=== PATIENT | female | born 1970 | race Caucasian/White ===

== ENCOUNTER 2018-05-02 09:33 | Day surgery (SDC) | payer BC ==
[~2018-05-02 09:33] MED LIST: Lactated Ringers 1,000 ML IV SCH; Sodium Chloride 0.9% 10 ML Syringe FLUSH PRN; Sodium Chloride 0.9% 2.5 ML Syringe FLUSH PRN
--- NOTE | 2018-05-02 10:02 | PCM.PREANE ---
Preanesthetic Assessment - Anesthesia/Transfusion/Family Hx Anesthesia History: Prior Anesthesia Without Reaction Other Type of Anesthesia Reaction Comment: family allergy hx of anectine Family History of Anesthesia Reaction: No Transfusion History: No Prior Transfusion(s) Intubation History: Unknown - Review of Systems General: No Symptoms Pulmonary: No Symptoms Cardiovascular: No Symptoms Gastrointestinal: Constipation, Diarrhea Neurological: No Symptoms Other: Reports: None - Physical Assessment Height: 1.68 m Weight: 82.554 kg ASA Class: 2 Mental Status: Alert & Oriented x3 Airway Class: Mallampati = 2 Dentition: Reports: Normal Dentition Thyro-Mental Finger Breadths: 2 Mouth Opening Finger Breadths: 2 ROM/Head Extension: Full Lungs: Clear to Auscultation, Normal Respiratory Effort Cardiovascular: Regular Rate, Regular Rhythm - Lab Values: Laboratory Last Values Urine HCG, Qual NEGATIVE (NEGATIVE) 05/02/18 08:46 - Allergies Allergies/Adverse Reactions: Allergies Allergy/AdvReac Type Severity Reaction Status Date / Time Sulfa (Sulfonamide Allergy Hives Verified 04/28/18 08:22 Antibiotics) Anectine Allergy "family Uncoded 04/28/18 08:21 allergy" - Blood Blood Available: No - Anesthesia Plan Pre-Op Medication Ordered: None - Acknowledgements Anesthesia Type Planned: MAC Pt an Appropriate Candidate for the Planned Anesthesia: Yes Alternatives and Risks of Anesthesia Discussed w Pt/Guardian: Yes Pt/Guardian Understands and Agrees with Anesthesia Plan: Yes PreAnesthesia Questionnaire HEENT History: Reports: Allergic Rhinitis, Other (See Below) Other HEENT History: wears glasses, latanoprost eye drop for increased pressure and to prevent glaucoma Genitourinary History: Reports: UTI, Recurrent Musculoskeletal History: Reports: None Neurological History: Reports: Migraines (not for a long time) Endocrine/Metabolic History: Reports: Hypothyroidism - Past Surgical History Head Surgeries/Procedures: Reports: None HEENT Surgical History: Reports: Tonsillectomy Female Surgical History: Reports: Tubal Ligation Musculoskeletal Surgical History: Reports: Other (See Below) Other Musculoskeletal Surgeries/Procedures:: lt achilles tendon repair - SUBSTANCE USE Smoking Status *Q: Current Every Day Smoker (1 ppd) Tobacco Use Within Last Twelve Months: Cigarettes Recreational Drug Use History: No - HOME MEDS Home Medications: Home Meds Latanoprost/Pf [Latanoprost 0.005% Eye Drop] 1 drop EYEBOTH DAILY 04/27/18 [ History] Levothyroxine Sodium [Levo-T] 100 mcg PO DAILY 04/27/18 [History] - CURRENT (IN HOUSE) MEDS Current Meds: Current Medications Lactated Ringer's (Ringers, Lactated) 1,000 mls @ 125 mls/hr IV ASDIRECTED NEIDA Sodium Chloride (Saline Flush) 10 ml FLUSH ASDIRECTED PRN PRN Reason: Keep Vein Open Sodium Chloride (Saline Flush) 2.5 ml FLUSH ASDIRECTED PRN PRN Reason: Keep Vein Open Sodium Chloride (Saline Flush) 10 ml FLUSH ASDIRECTED PRN PRN Reason: Keep Vein Open Sodium Chloride (Saline Flush) 2.5 ml FLUSH ASDIRECTED PRN PRN Reason: Keep Vein Open
[2018-05-02] MEDS ORDERED: Lidocaine 2% 5 ML SDV ONE (10:41)
[2018-05-02] MEDS ORDERED: Propofol 200 MG/20 ML SDV ONE ×2 (10:41→11:28)
[2018-05-02] MEDS ORDERED: fentaNYL 100 MCG/2 ML SDV ONE (10:41)
[2018-05-02] MEDS ORDERED: Midazolam 1 MG/ML 2 ML SDV ONE (10:41)
[2018-05-02] MEDS ORDERED: cefOXitin 1 GM Vial ONE (11:26)
[2018-05-02] MEDS ORDERED: Water For Injection, Sterile 20 ML ONE (11:26)
--- NOTE | 2018-05-02 11:49 | PCM.OPNOTE ---
- General Post-Op/Procedure Note Date of Surgery/Procedure: 05/02/18 Operative Procedure(s): Diagnostic colonoscopy Findings: 1 cecal polyp, 1 ascending flat sessile colon polyp incompletely removed, 1 descedning colon polyp removed with hot snare, sigmoid colon polyps x 4, # 2 and #4 were removed with snare polyp. #2 was largest. Rectal polyp x 2 Pre Op Diagnosis: Change in bowel habits Post-Op Diagnosis: Cecal, ascending colon, descending colon, sigmoid colon x 4 and rectal x 2 colon polyps Anesthesia Technique: MAC Primary Surgeon: Pricila Gleason Condition: Good
--- NOTE | 2018-05-02 12:23 | PCM48HPAN ---
Post Anesthesia Note - EVALUATION WITHIN 48HRS OF ANESTHETIC Vital Signs in Normal Range: Yes Patient Participated in Evaluation: Yes Respiratory Function Stable: Yes Airway Patent: Yes Cardiovascular Function Stable: Yes Hydration Status Stable: Yes Pain Control Satisfactory: Yes Nausea and Vomiting Control Satisfactory: Yes Mental Status Recovered: Yes Resp Rate: 12 - COMMENTS/OBSERVATIONS Free Text/Narrative:: no anesthesia problems
--- NOTE | 2018-05-03 00:18 | OR ---
SURGEON: ELEAZAR HYDE MD DATE OF PROCEDURE: 05/02/2018 PREOPERATIVE DIAGNOSIS: Change in bowel habits. POSTOPERATIVE DIAGNOSES: 1. Cecal polyp. 2. Ascending colon polyp. 3. Descending colon polyp. 4. Sigmoid colon polyp x4. 5. Rectal polyps x2. PROCEDURE PERFORMED: Diagnostic colonoscopy. ANESTHESIA: MAC. EXTENT OF EXAM: To the cecum. PREPARATION: Good. LIMITATIONS: None. INDICATION FOR EXAMINATION: The patient is a 47-year-old female, who presents with changes in her bowel habits. The decision was made to proceed with a diagnostic colonoscopy. We discussed the procedure, expected perioperative course, and risks including bleeding, infection, or damage to surrounding structures including perforation. The patient verbalized understanding and wishes to proceed. PROCEDURE IN DETAIL: The patient was brought in to the endoscopy suite and placed in the left lateral decubitus position. A time-out was completed verifying the patient's name, age, date of , allergies, and procedure to be performed. Monitored anesthesia care was induced, and continuous oxygen was provided via nasal cannula throughout the procedure. After adequate sedation was achieved, a digital rectal exam was performed. This exam was within normal limits. A well lubricated colonoscope was inserted in the rectum and advanced under direct visualization to the level of the cecum. The cecum was identified by both visual and anatomic landmarks. A photograph was taken of the cecal cap, however, I was unable to retroflex the scope within the cecum due to looping of the scope more proximally. The scope was then fully withdrawn while examining the color, texture, anatomy, and integrity of the mucosa from the cecum to the anal canal. The patient was found to have a 3 mm to 4 mm polyp within the cecal cap. This was removed using a cold biopsy forceps. In the proximal ascending colon, the patient had a confluent polyp that was very sessile. I removed as much of this as I could using a cold biopsy forceps. Given its sessile nature, it was unclear whether I had removed all of the mass or not. The area was inked to allow further visualization in the future. The biopsies I took were sent to Pathology labeled as ascending colon polyp. Within the descending colon, the patient had an approximately 1 cm pedunculated polyp. This was removed using a hot snare. The area was marked with ink, and the polyp was sent to Pathology labeled as descending colon polyp. The patient had four sigmoid colon polyps. Sigmoid colon polyp #1 and #3 were small and removed using a cold biopsy forceps. Sigmoid colon polyp #2 and #4 were large and required a hot snare to remove them. The largest of all these polyps was sigmoid colon polyp #2. Sigmoid colon polyp #2 and #4 areas were marked with ink. The scope was brought into the rectum. There were two small polyps noted within the rectum and these were removed using cold biopsy forceps. I then reinserted the scope to the level of the transverse colon. The biopsy sites all appeared to be hemostatic. The scope was then brought back into the rectum and retroflexed to allow visualization of the anal canal opening. This appeared normal and a photograph was taken. The scope was then straightened out and fully withdrawn. The cecum to anus time was greater than 20 minutes. The patient tolerated the procedure well and was taken to PACU in stable condition. ENDOSCOPIC DIAGNOSIS: 1. Cecal polyp. 2. Ascending colon polyp. 3. Descending colon polyp. 4. Sigmoid colon polyp x4. 5. Rectal polyps x2. RECOMMENDATIONS: I visited with the patient regarding the procedure in the Postoperative Care Area. We will follow up on the biopsy results of these polyps and discuss any further management that needs to be done with the patient in clinic in 2 weeks. MEGHAN SAMUELS /[id number]
== END 2018-05-02 12:44 | disposition home or self-care (01) ==
LOC: MW.SDS 09:33
PROVIDERS: ATTEND Surgery
DX: R19.4 Change in bowel habit (principal); D12.2 Benign neoplasm of ascending colon; D12.0 Benign neoplasm of cecum; D12.4 Benign neoplasm of descending colon; D12.5 Benign neoplasm of sigmoid colon; D12.8 Benign neoplasm of rectum; F17.210 Nicotine dependence, cigarettes, uncomplicated; E03.9 Hypothyroidism, unspecified; Z79.899 Other long term (current) drug therapy; Z88.2 Allergy status to sulfonamides; Z88.8 Allergy status to other drugs, medicaments and biological substances; Z68.29 Body mass index [BMI] 29.0-29.9, adult
CPT/HCPCS: 45380; 45381; 45385; 81025; J0694; J2250; J2704; J3010; J7120

== ENCOUNTER 2018-05-23 06:59 | Day surgery (SDC) | payer BC ==
[2018-05-22 16:34] LABS: CHLORIDE,CL 100 mmol/L (98-107); SODIUM,NA 134 mmol/L (136-145)
[~2018-05-23 06:59] MED LIST changes: -Sodium Chloride 0.9% 10 ML Syringe FLUSH PRN; -Sodium Chloride 0.9% 2.5 ML Syringe FLUSH PRN
[2018-05-23] MEDS ORDERED: Sodium Chloride 0.9% 2.5 ML Syringe FLUSH PRN (07:34)
[2018-05-23] MEDS ORDERED: Sodium Chloride 0.9% 10 ML Syringe FLUSH PRN (07:34)
[2018-05-23] MEDS ORDERED: Rocuronium 10 MG/ML 10 ML Syringe ONE (07:37)
[2018-05-23] MEDS ORDERED: Methylene Blue 50 MG/10 ML Ampule ONE ×2 (07:37→08:51)
[2018-05-23] MEDS ORDERED: Lidocaine 2% 5 ML SDV ONE (07:37)
[2018-05-23] MEDS ORDERED: Propofol 200 MG/20 ML SDV ONE (07:37)
[2018-05-23] MEDS ORDERED: Ondansetron 4 MG/2 ML SDV ONE (07:37)
[2018-05-23] MEDS ORDERED: Midazolam 1 MG/ML 2 ML SDV ONE ×2 (07:37→09:02)
[2018-05-23] MEDS ORDERED: Fluorescein 5 ML Vial ONE (07:37)
[2018-05-23] MEDS ORDERED: fentaNYL 250 MCG/5 ML SDV ONE (07:38)
[2018-05-23] MEDS ORDERED: Lactated Ringers 1,000 ML IV SCH (07:45)
--- NOTE | 2018-05-23 08:08 | PCM.PREANE ---
Preanesthetic Assessment - Procedure Proposed Procedure: [facility] - Anesthesia/Transfusion/Family Hx Anesthesia History: Prior Anesthesia Without Reaction Other Type of Anesthesia Reaction Comment: family allergy hx of anectine Family History of Anesthesia Reaction: Yes Transfusion History: No Prior Transfusion(s) Intubation History: Unknown - Review of Systems General: No Symptoms Pulmonary: No Symptoms Cardiovascular: No Symptoms Gastrointestinal: No Symptoms Neurological: No Symptoms Other: Reports: None - Physical Assessment NPO Status Date: 05/22/18 NPO Status Time: 23:00 Height: 5 ft 6.5 in Weight: 83.007 kg ASA Class: 2 Mental Status: Alert & Oriented x3 Airway Class: Mallampati = 2 Dentition: Reports: Normal Dentition Thyro-Mental Finger Breadths: 3 Mouth Opening Finger Breadths: 3 ROM/Head Extension: Full Lungs: Clear to Auscultation, Normal Respiratory Effort Cardiovascular: Regular Rate, Regular Rhythm - Lab Values: Laboratory Last Values WBC 9.04 K/uL (4.0-11.0) 05/22/18 16:05 RBC 4.80 M/uL (4.30-5.90) 05/22/18 16:05 Hgb 14.6 g/dL (12.0-16.0) 05/22/18 16:05 Hct 43.2 % (36.0-46.0) 05/22/18 16:05 MCV 90.0 fL (80.0-98.0) 05/22/18 16:05 MCH 30.4 pg (27.0-32.0) 05/22/18 16:05 MCHC 33.8 g/dL (31.0-37.0) 05/22/18 16:05 RDW Std Deviation 45.0 fl (28.0-62.0) 05/22/18 16:05 RDW Coeff of Leon 14 % (11.0-15.0) 05/22/18 16:05 Plt Count 279 K/uL (150-400) 05/22/18 16:05 MPV 9.80 fL (7.40-12.00) 05/22/18 16:05 Nucleated RBC % 0.0 /100WBC 05/22/18 16:05 Nucleated RBCs # 0 K/uL 05/22/18 16:05 Sodium 134 mmol/L (136-145) L 05/22/18 16:05 Potassium 4.4 mmol/L (3.5-5.1) 05/22/18 16:05 Chloride 100 mmol/L (98-107) 05/22/18 16:05 Carbon Dioxide 23.1 mmol/L (21.0-32.0) 05/22/18 16:05 BUN 5 mg/dL (7.0-18.0) L 05/22/18 16:05 Creatinine 0.8 mg/dL (0.6-1.0) 05/22/18 16:05 Est Cr Clr Drug Dosing 83.85 mL/min 05/22/18 16:05 Estimated GFR (MDRD) > 60.0 ml/min 05/22/18 16:05 Glucose 108 mg/dL (74-106) H 05/22/18 16:05 Calcium 9.4 mg/dL (8.5-10.1) 05/22/18 16:05 HCG, Qual NEGATIVE (NEG) 05/22/18 16:05 Blood Type O POSITIVE 05/22/18 16:05 Antibody Screen NEGATIVE 05/22/18 16:05 - Allergies Allergies/Adverse Reactions: Allergies Allergy/AdvReac Type Severity Reaction Status Date / Time Sulfa (Sulfonamide Allergy Hives Verified 05/16/18 14:40 Antibiotics) Anectine Allergy "family Uncoded 05/16/18 14:40 allergy" - Acknowledgements Anesthesia Type Planned: General Anesthesia (TIVA, NO Volatile anesthestics or succinylcholine) Pt an Appropriate Candidate for the Planned Anesthesia: Yes Alternatives and Risks of Anesthesia Discussed w Pt/Guardian: Yes Pt/Guardian Understands and Agrees with Anesthesia Plan: Yes Additional Comments: I spoke with the patient at length regarding her family history of "malignant hyperthermia". The patient states her cousin, grandfather, great-grandmother, and 1 additional blood line relative have all while under anesthesia. The patient herself has not been tested for MH, but will be treated as if she is a known carrier. MH precautions instituted, anesthesia machine flushed per manufacture recommendations, soda changed, inline charcoal filters placed, and vaporizers disconnected. I explained to the patient that we will avoid volatile anesthetics and known triggers including but not limited to: sevoflurane, desflurane, nitrous oxide (questionable trigger in the literature) , succinylcholine. PreAnesthesia Questionnaire HEENT History: Reports: Allergic Rhinitis, Other (See Below) Other HEENT History: wears glasses, latanoprost eye drop for increased pressure and to prevent glaucoma Cardiovascular History: Reports: None Respiratory History: Reports: None Gastrointestinal History: Reports: Colon Polyp Genitourinary History: Reports: UTI, Recurrent SURGICAL ASSISTANT History: Reports: Ectopic , Musculoskeletal History: Reports: None Neurological History: Reports: Migraines Psychiatric History: Reports: None Endocrine/Metabolic History: Reports: Hypothyroidism Hematologic History: Reports: None Immunologic History: Reports: None Oncologic (Cancer) History: Reports: None Dermatologic History: Reports: None - Infectious Disease History Infectious Disease History: Reports: None - Past Surgical History Head Surgeries/Procedures: Reports: None HEENT Surgical History: Reports: Tonsillectomy GI Surgical History: Reports: Colonoscopy Female Surgical History: Reports: Cervical Cryotherapy, LEEP, Tubal Ligation Musculoskeletal Surgical History: Reports: Other (See Below) Other Musculoskeletal Surgeries/Procedures:: lt achilles tendon repair x3 left foot - SUBSTANCE USE Smoking Status *Q: Current Every Day Smoker Tobacco Use Within Last Twelve Months: Cigarettes Recreational Drug Use History: No - HOME MEDS Home Medications: Home Meds Latanoprost/Pf [Latanoprost 0.005% Eye Drop] 1 drop EYEBOTH BEDTIME 04/27/18 [ History] Levothyroxine Sodium [Levo-T] 100 mcg PO DAILY 04/27/18 [History] - CURRENT (IN HOUSE) MEDS Current Meds: Current Medications Lactated Ringer's (Ringers, Lactated) 1,000 mls @ 125 mls/hr IV ASDIRECTED NEIDA Lactated Ringer's (Ringers, Lactated) 1,000 mls @ 125 mls/hr IV ASDIRECTED NEIDA Sodium Chloride (Saline Flush) 10 ml FLUSH ASDIRECTED PRN PRN Reason: Keep Vein Open Sodium Chloride (Saline Flush) 2.5 ml FLUSH ASDIRECTED PRN PRN Reason: Keep Vein Open Discontinued Medications Fentanyl (Sublimaze) Confirm Administered Dose 250 mcg .ROUTE .STK-MED ONE Stop: 05/23/18 07:39 Fluorescein Sodium (Ak-Fluor) Confirm Administered Dose 5 ml .ROUTE .STK-MED ONE Stop: 05/23/18 07:38 Lidocaine (Xylocaine-Mpf 2%) Confirm Administered Dose 5 ml .ROUTE .Eventap-MED ONE Stop: 05/23/18 07:38 Methylene Blue (Provayblue) Confirm Administered Dose 50 mg .ROUTE .Eventap-MED ONE Stop: 05/23/18 07:38 Midazolam HCl (Versed 1 Mg/Ml) Confirm Administered Dose 2 mg .ROUTE .YesGraph ONE Stop: 05/23/18 07:38 Ondansetron HCl (Zofran) Confirm Administered Dose 4 mg .ROUTE .Eventap-MED ONE Stop: 05/23/18 07:38 Propofol (Diprivan 20 Ml) Confirm Administered Dose 200 mg .ROUTE .SunnovationsMED ONE Stop: 05/23/18 07:[address] (Zemuron) Confirm Administered Dose 100 mg .ROUTE .SunnovationsMED ONE Stop: 05/23/18 07:38
[2018-05-23] MEDS ORDERED: HYDROmorphone 2 MG/ML SDV ONE (09:02)
[2018-05-23] MEDS ORDERED: fentaNYL 100 MCG/2 ML SDV IVPUSH PRN (10:08)
[2018-05-23] MEDS ORDERED: ePHEDrine 50 MG/ML SDV ONE (10:09)
[2018-05-23] MEDS ORDERED: Promethazine 25 MG/ML SDV IM PRN (11:02)
[2018-05-23] MEDS ORDERED: Ondansetron 4 MG/2 ML SDV IVPUSH PRN (11:02)
[2018-05-23] MEDS ORDERED: Acetaminophen/oxyCODONE 325-5 MG Tab PO PRN ×2 (11:02)
[2018-05-23] MEDS ORDERED: Ketorolac 30 MG/ML SDV IVPUSH ONE (11:02)
--- NOTE | 2018-05-23 11:13 | PCM.OPNOTE ---
- General Post-Op/Procedure Note Date of Surgery/Procedure: 05/23/18 Operative Procedure(s): Total vaginal hysterectomy with bilateral salpingectomy and cystoscopy and left ovarian biopsy Findings: Large black lesion on left ovary along with smaller implants on peritoneum. Tubes indicative of previous tubal ligation. Bladder intact. Pre Op Diagnosis: 1. Cervical lesion. 2. Menorrhagia Post-Op Diagnosis: Same plus lesion on left ovary, possible endometriosis vs hemorrhagic cyst Anesthesia Technique: Other (see below) Other Anesthesia Type: TIVA Primary Surgeon: Yessy Beavers Secondary Surgeon: Angela Hererra (Second Assist: Justen Cheatham, MS4) Anesthesia Provider: Ned Finn Plasma Table Operator: Norma Jason Pathology: Biopsy specimen of left ovary, uterus, and bilateral fallopian tubes Fluid Replacement, Intraop: 1,700 EBL in mLs: 150 Complications: None known Condition: Good
--- NOTE | 2018-05-23 11:44 | PCM.POSTAN ---
POST ANESTHESIA ASSESSMENT - MENTAL STATUS Mental Status: Alert, Oriented - RESPIRATORY Respiratory Status: Respiratory Rate WNL, Airway Patent, O2 Saturation Stable - CARDIOVASCULAR CV Status: Pulse Rate WNL, Blood Pressure Stable - GASTROINTESTINAL GI Status: No Symptoms - POST OP HYDRATION Hydration Status: Adequate & Stable
[2018-05-23] MEDS: Ketorolac 30 MG/ML SDV IVPUSH SCH ×2 (12:23→17:19)
[2018-05-23] MEDS ORDERED: Bupivacaine 0.5% 10 ML SDV ONE (13:25)
--- NOTE | 2018-05-23 13:39 | OR ---
SURGEON: Yessy Beavers M.D. DATE OF PROCEDURE: 05/23/2018 PREOPERATIVE DIAGNOSES: 1. Menorrhagia. 2. Cervical lesion. POSTOPERATIVE DIAGNOSES: 1. Menorrhagia. 2. Cervical lesion. PROCEDURES: Total vaginal hysterectomy with bilateral salpingectomy, biopsy of left ovary, and cystoscopy. BOND RUNNER: Angela Herrera MD. SECOND BOND RUNNER: Yina Cheatham MS4. ANESTHESIA: TIVA. ESTIMATED BLOOD LOSS: 150 mL. FLUIDS: 1700 mL crystalloid. FINDINGS: Uterus was 8 week size, mobile. The right tube and ovary appeared normal with note of prior tubal ligation. The left ovary had a black lesion on it, possible old hemorrhage from hemorrhagic corpus luteum, possible endometriosis, this area was biopsied. Remainder of the pelvis was normal. Upon cystoscopy, there was copious flow of bright green urine from bilateral ureteral orifices and there was no evidence of any trauma to the bladder mucosa. COMPLICATIONS: None known. DISPOSITION: Stable to recovery. BRIEF HISTORY: This is a 47-year-old female, she presents with pelvic pain on the left, bowel movements alternating diarrhea and constipation, mucousy stools, abnormal uterine bleeding with excessive quantity and cramping. However, it is predictable and lasts 5 to 8 days. She had a LEEP in 2013, has had regular Pap since that time which have been normal. However, ultrasound shows a 3 cm mass in the cervix which is most suggestive of a fibroid. She has had an ultrasound, which did not suggest a polyp or submucosal fibroid. She has had a benign endometrial biopsy. After discussion of options for management of her irregular periods as well as the cervical lesion, she desires to proceed with hysterectomy. Initially our plan was to proceed with a laparoscopically assisted vaginal hysterectomy with removal of the tubes in an effort to reduce risk of ovarian cancer. However, after discussion of anesthesia, she has a family history of anesthesia and they felt that the safest anesthesia was TIVA. Establishing a pneumoperitoneum would make this more difficult anesthetic and therefore I did discuss with the patient ahead of time and we will proceed with a total vaginal hysterectomy, attempted bilateral salpingectomy, and cystoscopy and surgery as indicated. Risks have been discussed including bleeding; infection; injury to bowel, bladder, blood vessels, or other organs; risk of thromboembolic event; risk of anesthesia as well as risk of change in sexual function; and persistent symptoms regarding pain. Understanding these risks, she does desire to proceed. DESCRIPTION OF PROCEDURE: With the patient in dorsal lithotomy position, under adequate TIVA, the abdomen was prepped with chlorhexidine. The perineum and vagina were prepped with Betadine and draped in usual fashion for vaginal surgery. Hernandez catheter was placed. SCDs were in place. She had received 2 g of Ancef IV and an appropriate time-out was held. Bimanual examination revealed a mobile, 8 week sized uterus. Weighted speculum was placed posteriorly and a right angle was placed anteriorly. The cervix was grasped with a Veronica tenaculum and circumscribed using electrocautery. The anterior cul-de-sac was entered sharply, and the right angle retractor was placed. The posterior cul-de-sac was entered sharply. The Erick Auvard speculum was placed. The uterosacral ligaments were cross clamped with a Narcisa clamp, cut, and ligated with a Narcisa ligature of 2-0 Polysorb. Two additional pedicles were taken across the cardinal ligament complex on the right and the left and an additional pedicle across the utero-ovarian ligament, which was clamped with a Narcisa clamp, cut, and ligated using a free tie, followed by [id number] suture of 2-0 Polysorb. These were retained, both were hemostatic. The tubes were then identified, grasped with a Yudi, and the remaining mesosalpinx was clamped, cut, and ligated on the right and the left. These were carefully inspected for hemostasis. Both were hemostatic and were released. The utero-ovarian ligaments were carefully inspected for hemostasis, they were hemostatic and were released. The remaining pedicles were inspected for hemostasis, they were hemostatic. The retained uterosacral ligament sutures were ligated to the vaginal apices bilaterally and the vaginal cuff was closed with a running lock suture of 0 Polysorb. The Hernandez catheter was removed. Cystoscopy was performed after IV fluorescein had been given and there was copious flow of bright green urine from bilateral ureteral orifices. There was also no evidence of any trauma to the bladder mucosa. The cystoscope was then removed, a Hernandez catheter was placed. A speculum was placed in the vagina to inspect the cuff which was hemostatic. All the instruments removed from the vagina. Final sponge, needle, and instrument counts were reported as correct. There were no known complications. The patient was transferred to recovery in good condition. MARY SAMUELS /[id number]
--- NOTE | 2018-05-23 13:45 | OR ---
SURGEON: Yessy Beavers M.D. DATE OF PROCEDURE: ADDENDUM: PROCEDURE: Following ligation of the utero-ovarian ligament, the tubes and ovaries were inspected. The left ovary had a large dark implant with some surrounding dark implants on the peritoneum. The lesion on the ovary was biopsied with the biopsy forceps and also cauterized and this was sent to pathology as a separate specimen. Pathology specimens for the procedure are uterus, bilateral fallopian tubes, left ovarian biopsy. MARY / ARVIND /[id number]
--- NOTE | 2018-05-23 16:22 | PCM48HPAN ---
Post Anesthesia Note - EVALUATION WITHIN 48HRS OF ANESTHETIC Vital Signs in Normal Range: Yes Patient Participated in Evaluation: Yes Respiratory Function Stable: Yes Airway Patent: Yes Cardiovascular Function Stable: Yes Hydration Status Stable: Yes Pain Control Satisfactory: Yes (she feels pelvic pressure, not pain) Nausea and Vomiting Control Satisfactory: Yes Mental Status Recovered: Yes Resp Rate: 16
[2018-05-23] MEDS ORDERED: Latanoprost 0.005% Ophth Soln 2.5 ML Bottle EYEBOTH SCH (21:00)
[2018-05-24] MEDS: Ketorolac 30 MG/ML SDV IVPUSH SCH ×2 (04:27)
[2018-05-24 05:54] LABS: CHLORIDE,CL 102 mmol/L (98-107); SODIUM,NA 134 mmol/L (136-145)
--- NOTE | 2018-05-24 08:01 | PCM.PN ---
<Justen Cheatham - Last Filed: 05/24/18 08:21> - General Info Date of Service: 05/24/18 Admission Dx/Problem (Free Text): POD1 after total vaginal hysterectomy and bilateral salpingectomy with cystoscopy and left ovarian biopsy Subjective Update: Patient is doing well and resting comfortably. She denies any pain, stating she only feels some slight discomfort in her pelvic region. She is on IV Toradal. Normal appetite. Denies BM. Spontaneous urination throughout the night after removal of Hernandez catheter. Functional Status: Reports: Pain Controlled, Tolerating Diet, Ambulating, Urinating - Review of Systems General: Reports: No Symptoms Pulmonary: Denies: Shortness of Breath Cardiovascular: Denies: Chest Pain Gastrointestinal: Reports: No Symptoms Genitourinary: Reports: No Symptoms - Patient Data Vitals - Most Recent: Last Vital Signs Temp 98.0 F 05/24/18 04:00 Pulse 83 05/24/18 04:00 Resp 19 05/24/18 04:00 BP 144/71 H 05/24/18 04:00 Pulse Ox 94 L 05/24/18 04:00 Weight - Most Recent: 83.007 kg I&O - Last 24 Hours: Intake & Output 05/23/18 05/24/18 05/24/18 22:59 06:59 14:59 Intake Total 370 1100 Output Total 425 2300 Balance -55 -1200 Lab Results Last 24 Hours: Laboratory Results - last 24 hr 05/24/18 05/24/18 Range/Units 04:55 04:55 WBC 12.21 H (4.0-11.0) K/uL RBC 4.13 L (4.30-5.90) M/uL Hgb 12.3 (12.0-16.0) g/dL Hct 37.4 (36.0-46.0) % MCV 90.6 (80.0-98.0) fL MCH 29.8 (27.0-32.0) pg MCHC 32.9 (31.0-37.0) g/dL RDW Std Deviation 45.2 (28.0-62.0) fl RDW Coeff of Leon 14 (11.0-15.0) % Plt Count 238 (150-400) K/uL MPV 10.40 (7.40-12.00) fL Neut % (Auto) 81.1 H (48.0-80.0) % Lymph % (Auto) 12.5 L (16.0-40.0) % [place] % (Auto) 5.4 (0.0-15.0) % Eos % (Auto) 0.8 (0.0-7.0) % Baso % (Auto) 0.2 (0.0-1.5) % Neut # (Auto) 9.9 H (1.4-5.7) K/uL Lymph # (Auto) 1.5 (0.6-2.4) K/uL [place] # (Auto) 0.7 (0.0-0.8) K/uL Eos # (Auto) 0.1 (0.0-0.7) K/uL Baso # (Auto) 0.0 (0.0-0.1) K/uL Nucleated RBC % 0.0 /100WBC Nucleated RBCs # 0 K/uL Sodium 134 L (136-145) mmol/L Potassium 3.8 (3.5-5.1) mmol/L Chloride 102 (98-107) mmol/L Carbon Dioxide 25.2 (21.0-32.0) mmol/L BUN 3 L (7.0-18.0) mg/dL Creatinine 0.7 (0.6-1.0) mg/dL Est Cr Clr Drug Dosing 95.83 mL/min Estimated GFR (MDRD) > 60.0 ml/min Glucose 91 (74-106) mg/dL Calcium 8.0 L (8.5-10.1) mg/dL Med Orders - Current: Current Medications Fentanyl (Sublimaze) 50 mcg IVPUSH SEECOMMENT PRN PRN Reason: Pain (moderate 4-6) Lactated Ringer's (Ringers, Lactated) 1,000 mls @ 125 mls/hr IV ASDIRECTED [facility] Last Admin: 05/23/18 07:50 Dose: 125 mls/hr Lactated Ringer's (Ringers, Lactated) 1,000 mls @ 125 mls/hr IV ASDIRECTED [facility] Last Admin: 05/23/18 12:24 Dose: 125 mls/hr Ketorolac Tromethamine (Toradol) 30 mg IVPUSH Q6H [facility] Stop: 05/28/18 11:03 Last Admin: 05/24/18 04:27 Dose: 30 mg Latanoprost (Xalatan 0.005% Ophth Soln) 0 ml EYEBOTH BEDTIME [facility] Last Admin: 05/23/18 22:00 Dose: 1 drop Levothyroxine Sodium (Synthroid) 100 mcg PO DAILY [facility] Ondansetron HCl (Zofran) 4 mg IVPUSH Q6H PRN PRN Reason: Nausea/Vomiting Oxycodone/Acetaminophen (Percocet 325-5 Mg) 1 tab PO Q4H PRN PRN Reason: Pain (moderate 4-6) Oxycodone/Acetaminophen (Percocet 325-5 Mg) 2 tab PO Q4H PRN PRN Reason: Pain (moderate 4-6) Promethazine HCl (Phenergan) 25 mg IM Q6H PRN PRN Reason: Nausea/Vomiting Sodium Chloride (Saline Flush) 10 ml FLUSH ASDIRECTED PRN PRN Reason: Keep Vein Open Sodium Chloride (Saline Flush) 2.5 ml FLUSH ASDIRECTED PRN PRN Reason: Keep Vein Open Discontinued Medications Bupivacaine HCl (Sensorcaine-Mpf 0.5%) Confirm Administered Dose 10 ml .ROUTE .STK-MED ONE Stop: 05/23/18 13:26 Ephedrine Sulfate (Ephedrine Sulfate) Confirm Administered Dose 50 mg .ROUTE .STK-MED ONE Stop: 05/23/18 10:10 Fentanyl (Sublimaze) Confirm Administered Dose 250 mcg .ROUTE .STK-MED ONE Stop: 05/23/18 07:39 Fluorescein Sodium (Ak-Fluor) Confirm Administered Dose 5 ml .ROUTE .STK-MED ONE Stop: 05/23/18 07:38 Hydromorphone HCl (Dilaudid) Confirm Administered Dose 2 mg .ROUTE .STK-MED ONE Stop: 05/23/18 09:03 Propofol (Diprivan 50 Ml) Confirm Administered Dose 100 mls @ as directed .ROUTE .STK-MED ONE Stop: 05/23/18 09:05 Acetaminophen (Ofirmev) Confirm Administered Dose 100 mls @ as directed IV .STK- MED ONE Stop: 05/23/18 09:05 Ketorolac Tromethamine (Toradol) 30 mg IVPUSH ONETIME ONE Stop: 05/23/18 11:03 Last Admin: 05/23/18 11:26 Dose: 30 mg Lidocaine (Xylocaine-Mpf 2%) Confirm Administered Dose 5 ml .ROUTE .STK-MED ONE Stop: 05/23/18 07:38 Methylene Blue (Provayblue) Confirm Administered Dose 50 mg .ROUTE .STK-MED ONE Stop: 05/23/18 07:38 Methylene Blue (Provayblue) Confirm Administered Dose 50 mg .ROUTE .STK-MED ONE Stop: 05/23/18 08:52 Midazolam HCl (Versed 1 Mg/Ml) Confirm Administered Dose 2 mg .ROUTE .STK-MED ONE Stop: 05/23/18 07:38 Midazolam HCl (Versed 1 Mg/Ml) Confirm Administered Dose 2 mg .ROUTE .STK-MED ONE Stop: 05/23/18 09:03 Ondansetron HCl (Zofran) Confirm Administered Dose 4 mg .ROUTE .STK-MED ONE Stop: 05/23/18 07:38 Propofol (Diprivan 20 Ml) Confirm Administered Dose 200 mg .ROUTE .STK-MED ONE Stop: 05/23/18 07:38 Rocuronium [place] (Zemuron) Confirm Administered Dose 100 mg .ROUTE .ST-MED ONE Stop: 05/23/18 07:38 - Problem List Review Problem List Initiated/Reviewed/Updated: Yes - Assessment Assessment:: 47 year old female POD1 following total vaginal hysterectomy, bilateral salpingectomy, cystoscopy, and left ovarian biopsy. Patient doing well. - Plan Plan:: 1. Routine post-operative care 2. Anticipate discharge home today <Yessy Beavers - Last Filed: 05/24/18 08:47> - Patient Data Vitals - Most Recent: Last Vital Signs Temp 36.7 C 05/24/18 04:00 Pulse 83 05/24/18 04:00 Resp 19 05/24/18 04:00 BP 144/71 H 05/24/18 04:00 Pulse Ox 94 L 05/24/18 04:00 I&O - Last 24 Hours: Intake & Output 05/23/18 05/24/18 05/24/18 22:59 06:59 14:59 Intake Total 370 1100 Output Total 425 2300 Balance -55 -1200 Lab Results Last 24 Hours: Laboratory Results - last 24 hr 05/24/18 05/24/18 Range/Units 04:55 04:55 WBC 12.21 H (4.0-11.0) K/uL RBC 4.13 L (4.30-5.90) M/uL Hgb 12.3 (12.0-16.0) g/dL Hct 37.4 (36.0-46.0) % MCV 90.6 (80.0-98.0) fL MCH 29.8 (27.0-32.0) pg MCHC 32.9 (31.0-37.0) g/dL RDW Std Deviation 45.2 (28.0-62.0) fl RDW Coeff of Leon 14 (11.0-15.0) % Plt Count 238 (150-400) K/uL MPV 10.40 (7.40-12.00) fL Neut % (Auto) 81.1 H (48.0-80.0) % Lymph % (Auto) 12.5 L (16.0-40.0) % [place] % (Auto) 5.4 (0.0-15.0) % Eos % (Auto) 0.8 (0.0-7.0) % Baso % (Auto) 0.2 (0.0-1.5) % Neut # (Auto) 9.9 H (1.4-5.7) K/uL Lymph # (Auto) 1.5 (0.6-2.4) K/uL [place] # (Auto) 0.7 (0.0-0.8) K/uL Eos # (Auto) 0.1 (0.0-0.7) K/uL Baso # (Auto) 0.0 (0.0-0.1) K/uL Nucleated RBC % 0.0 /100WBC Nucleated RBCs # 0 K/uL Sodium 134 L (136-145) mmol/L Potassium 3.8 (3.5-5.1) mmol/L Chloride 102 (98-107) mmol/L Carbon Dioxide 25.2 (21.0-32.0) mmol/L BUN 3 L (7.0-18.0) mg/dL Creatinine 0.7 (0.6-1.0) mg/dL Est Cr Clr Drug Dosing 95.83 mL/min Estimated GFR (MDRD) > 60.0 ml/min Glucose 91 (74-106) mg/dL Calcium 8.0 L (8.5-10.1) mg/dL Med Orders - Current: Current Medications Fentanyl (Sublimaze) 50 mcg IVPUSH SEECOMMENT PRN PRN Reason: Pain (moderate 4-6) Lactated Ringer's (Ringers, Lactated) 1,000 mls @ 125 mls/hr IV ASDIRECTED [facility] Last Admin: 05/23/18 07:50 Dose: 125 mls/hr Lactated Ringer's (Ringers, Lactated) 1,000 mls @ 125 mls/hr IV ASDIRECTED [facility] Last Admin: 05/23/18 12:24 Dose: 125 mls/hr Ketorolac Tromethamine (Toradol) 30 mg IVPUSH Q6H [facility] Stop: 05/28/18 11:03 Last Admin: 05/24/18 04:27 Dose: 30 mg Latanoprost (Xalatan 0.005% Ophth Soln) 0 ml EYEBOTH BEDTIME [facility] Last Admin: 05/23/18 22:00 Dose: 1 drop Levothyroxine Sodium (Synthroid) 100 mcg PO DAILY [facility] Last Admin: 05/24/18 08:39 Dose: 100 mcg Ondansetron HCl (Zofran) 4 mg IVPUSH Q6H PRN PRN Reason: Nausea/Vomiting Oxycodone/Acetaminophen (Percocet 325-5 Mg) 1 tab PO Q4H PRN PRN Reason: Pain (moderate 4-6) Oxycodone/Acetaminophen (Percocet 325-5 Mg) 2 tab PO Q4H PRN PRN Reason: Pain (moderate 4-6) Promethazine HCl (Phenergan) 25 mg IM Q6H PRN PRN Reason: Nausea/Vomiting Sodium Chloride (Saline Flush) 10 ml FLUSH ASDIRECTED PRN PRN Reason: Keep Vein Open Sodium Chloride (Saline Flush) 2.5 ml FLUSH ASDIRECTED PRN PRN Reason: Keep Vein Open Discontinued Medications Bupivacaine HCl (Sensorcaine-Mpf 0.5%) Confirm Administered Dose 10 ml .ROUTE .STK-MED ONE Stop: 05/23/18 13:26 Ephedrine Sulfate (Ephedrine Sulfate) Confirm Administered Dose 50 mg .ROUTE .STK-MED ONE Stop: 05/23/18 10:10 Fentanyl (Sublimaze) Confirm Administered Dose 250 mcg .ROUTE .STK-MED ONE Stop: 05/23/18 07:39 Fluorescein Sodium (Ak-Fluor) Confirm Administered Dose 5 ml .ROUTE .STK-MED ONE Stop: 05/23/18 07:38 Hydromorphone HCl (Dilaudid) Confirm Administered Dose 2 mg .ROUTE .STK-MED ONE Stop: 05/23/18 09:03 Propofol (Diprivan 50 Ml) Confirm Administered Dose 100 mls @ as directed .ROUTE .STK-MED ONE Stop: 05/23/18 09:05 Acetaminophen (Ofirmev) Confirm Administered Dose 100 mls @ as directed IV .STK- MED ONE Stop: 05/23/18 09:05 Ketorolac Tromethamine (Toradol) 30 mg IVPUSH ONETIME ONE Stop: 05/23/18 11:03 Last Admin: 05/23/18 11:26 Dose: 30 mg Lidocaine (Xylocaine-Mpf 2%) Confirm Administered Dose 5 ml .ROUTE .STK-MED ONE Stop: 05/23/18 07:38 Methylene Blue (Provayblue) Confirm Administered Dose 50 mg .ROUTE .STK-MED ONE Stop: 05/23/18 07:38 Methylene Blue (Provayblue) Confirm Administered Dose 50 mg .ROUTE .STK-MED ONE Stop: 05/23/18 08:52 Midazolam HCl (Versed 1 Mg/Ml) Confirm Administered Dose 2 mg .ROUTE .STK-MED ONE Stop: 05/23/18 07:38 Midazolam HCl (Versed 1 Mg/Ml) Confirm Administered Dose 2 mg .ROUTE .STK-MED ONE Stop: 05/23/18 09:03 Ondansetron HCl (Zofran) Confirm Administered Dose 4 mg .ROUTE .STK-MED ONE Stop: 05/23/18 07:38 Propofol (Diprivan 20 Ml) Confirm Administered Dose 200 mg .ROUTE .STK-MED ONE Stop: 05/23/18 07:38 Rocuronium [place] (Zemuron) Confirm Administered Dose 100 mg .ROUTE .STK-MED ONE Stop: 05/23/18 07:38 - Problem List & Annotations (1) Fibroid of cervix SNOMED Code(s): 933691108 Code(s): D26.0 - OTHER BENIGN NEOPLASM OF CERVIX UTERI Status: Acute Current Visit: Yes (2) Menorrhagia SNOMED Code(s): 811911401 Code(s): N92.0 - EXCESSIVE AND FREQUENT MENSTRUATION WITH REGULAR CYCLE Status: Acute Current Visit: Yes Qualifiers: Menorrahagia type: with regular cycle Qualified Code(s): N92.0 - Excessive and frequent menstruation with regular cycle - Problem List Review Problem List Initiated/Reviewed/Updated: Yes - My Orders Last 24 Hours: My Active Orders 05/23/18 11:02 Acetaminophen/oxyCODONE [Percocet 325-5 MG] 1 tab PO Q4H PRN Acetaminophen/oxyCODONE [Percocet 325-5 MG] 2 tab PO Q4H PRN Ondansetron [Zofran] 4 mg IVPUSH Q6H PRN Promethazine [Phenergan] 25 mg IM Q6H PRN Resuscitation Status Routine 05/23/18 11:03 Patient Status [ADT] Routine Notify Provider Intake and Out [RC] ASDIRECTED Notify Provider Vital Signs [RC] ASDIRECTED Oxygen Therapy [RC] ASDIRECTED RT Incentive Spirometry [RC] Q2HWA Up With Assistance [RC] PER UNIT ROUTINE Up ad Farhana [RC] PER UNIT ROUTINE Urinary Catheter Removal [RC] Per Unit Routine Vital Signs [RC] PER UNIT ROUTINE Peripheral IV Discontinue [OM.PC] Routine Sequential Compression Device [OM.PC] Per Unit Routine 05/23/18 11:04 Intake and Output [RC] Q12H Pulse Oximetry [RC] PER UNIT ROUTINE 05/23/18 11:15 Ketorolac [Toradol] 30 mg IVPUSH Q6H 05/23/18 21:00 Latanoprost [Xalatan 0.005% Ophth Soln] 0 ml EYEBOTH BEDTIME 05/23/18 Dinner Regular Diet [DIET] 05/24/18 08:44 Ready for Discharge [RC] PER UNIT ROUTINE 05/24/18 09:00 Levothyroxine [Synthroid] 100 mcg PO DAILY - Assessment Assessment:: patient was seen and examined by me and I agree with above. Patient is tolerating regular diet, ambulating and has voided. Pain is well controlle. - Plan Plan:: Discharge instructions reviewed. Follow up in 2 weeks.
[2018-05-24] MEDS ORDERED: Levothyroxine 100 MCG Tab PO SCH (09:00)
== END 2018-05-24 11:15 | disposition home or self-care (01) ==
LOC: MW.SDS 06:59 → MW.MS 11:03 → MW.SDS 05-24 11:15
PROVIDERS: ATTEND Obstetrics & Gynecology
DX: N92.0 Excessive and frequent menstruation with regular cycle (principal); N87.9 Dysplasia of cervix uteri, unspecified; N88.8 Other specified noninflammatory disorders of cervix uteri; N72 Inflammatory disease of cervix uteri; F17.210 Nicotine dependence, cigarettes, uncomplicated; E03.9 Hypothyroidism, unspecified; Z79.899 Other long term (current) drug therapy; Z88.8 Allergy status to other drugs, medicaments and biological substances; Z88.2 Allergy status to sulfonamides
CPT/HCPCS: 36415; 58262; 80048; 84703; 85025; 85027; 86850; 86900; 86901; A9270; J0131; J1170; J1885; J2250; J2405; J2704; J3010; J7120; J3490

== ENCOUNTER 2019-04-10 08:32 | Day surgery (SDC) | payer BC ==
[~2019-04-10 08:32] MED LIST changes: +Sodium Chloride 0.9% 10 ML SDV IV PRN; +Sodium Chloride 0.9% 10 ML Syringe FLUSH PRN; +Sodium Chloride 0.9% 2.5 ML Syringe FLUSH PRN
--- NOTE | 2019-04-10 09:19 | PCM.PREANE ---
Preanesthetic Assessment - Anesthesia/Transfusion/Family Hx Anesthesia History: Prior Anesthesia Without Reaction Other Type of Anesthesia Reaction Comment: family allergy hx of MH Transfusion History: No Prior Transfusion(s) Intubation History: Unknown - Review of Systems General: No Symptoms Pulmonary: No Symptoms Cardiovascular: No Symptoms Gastrointestinal: No Symptoms Neurological: No Symptoms Other: Reports: None - Physical Assessment NPO Status Date: 04/09/19 O2 Sat by Pulse Oximetry: 96 Respiratory Rate: 14 Vital Signs: Last Vital Signs Temp 98.2 F 04/10/19 08:54 Pulse 84 04/10/19 08:54 Resp 14 04/10/19 08:54 BP 124/85 04/10/19 08:54 Pulse Ox 96 04/10/19 08:54 Height: 5 ft 6 in Weight: 81.647 kg ASA Class: 2 Mental Status: Alert & Oriented x3 Airway Class: Mallampati = 2 Dentition: Reports: Normal Dentition ROM/Head Extension: Full Lungs: Clear to Auscultation, Normal Respiratory Effort Cardiovascular: Regular Rate, Regular Rhythm - Allergies Allergies/Adverse Reactions: Allergies Allergy/AdvReac Type Severity Reaction Status Date / Time desflurane Allergy Severe Malignant Verified 04/04/19 16:57 Hyperthermia isoflurane Allergy Severe Malignant Verified 04/04/19 16:57 Hyperthermia sevoflurane Allergy Severe Malignant Verified 04/04/19 16:57 Hyperthermia Sulfa (Sulfonamide Allergy Hives Verified 04/04/19 16:57 Antibiotics) Anectine Allergy Severe Malignant Uncoded 04/04/19 16:57 Hyperthermia - Blood Blood Available: No - Anesthesia Plan Pre-Op Medication Ordered: None - Acknowledgements Anesthesia Type Planned: General Anesthesia Pt an Appropriate Candidate for the Planned Anesthesia: Yes Alternatives and Risks of Anesthesia Discussed w Pt/Guardian: Yes Pt/Guardian Understands and Agrees with Anesthesia Plan: Yes Additional Comments: anes prob list: stong fam hx of MH, glaucoma, thyroid replacement PLAN: tiva, clean machine, non triggering aents PreAnesthesia Questionnaire HEENT History: Reports: Other (See Below) Other HEENT History: wears glasses, is predisposed to Glaucoma Cardiovascular History: Reports: None Respiratory History: Reports: None Gastrointestinal History: Reports: Colon Polyp Genitourinary History: Reports: UTI, Recurrent [employer]ATOR History: Reports: Ectopic , Musculoskeletal History: Reports: None Neurological History: Reports: Migraines Psychiatric History: Reports: None Endocrine/Metabolic History: Reports: Hypothyroidism Hematologic History: Reports: None Immunologic History: Reports: None Oncologic (Cancer) History: Reports: None Dermatologic History: Reports: None - Infectious Disease History Infectious Disease History: Reports: None - Past Surgical History Head Surgeries/Procedures: Reports: None HEENT Surgical History: Reports: Tonsillectomy GI Surgical History: Reports: Colonoscopy Female Surgical History: Reports: Hysterectomy, Tubal Ligation Musculoskeletal Surgical History: Reports: Other (See Below) Other Musculoskeletal Surgeries/Procedures:: Achilles tendon repair - SUBSTANCE USE Smoking Status *Q: Current Every Day Smoker Tobacco Use Within Last Twelve Months: Cigarettes Recreational Drug Use History: No - HOME MEDS Home Medications: Home Meds Latanoprost/Pf [Latanoprost 0.005% Eye Drop] 1 drop EYEBOTH BEDTIME 04/27/18 [ History] Levothyroxine Sodium [Levo-T] 100 mcg PO DAILY 04/27/18 [History] - CURRENT (IN HOUSE) MEDS Current Meds: Current Medications Lactated Ringer's (Ringers, Lactated) 1,000 mls @ 125 mls/hr IV ASDIRECTED [facility] Sodium Chloride (Saline Flush) 10 ml FLUSH ASDIRECTED PRN PRN Reason: Keep Vein Open Sodium Chloride (Saline Flush) 2.5 ml FLUSH ASDIRECTED PRN PRN Reason: Keep Vein Open Sodium Chloride (Saline Flush) 10 ml FLUSH ASDIRECTED PRN PRN Reason: Keep Vein Open Sodium Chloride (Saline Flush) 2.5 ml FLUSH ASDIRECTED PRN PRN Reason: Keep Vein Open Sodium Chloride (Normal Saline) 10 ml IV ASDIRECTED PRN PRN Reason: IV Use
[2019-04-10] MEDS ORDERED: Propofol 200 MG/20 ML SDV ONE (10:34)
[2019-04-10] MEDS ORDERED: Lidocaine 2% 5 ML SDV ONE (10:34)
[2019-04-10] MEDS ORDERED: fentaNYL 100 MCG/2 ML SDV ONE (10:35)
--- NOTE | 2019-04-10 11:40 | PCM.OPNOTE ---
- General Post-Op/Procedure Note Date of Surgery/Procedure: 04/10/19 Operative Procedure(s): Diagnostic colonoscopy Findings: Ascending colon mass, biopsies taken. Ascending colon polyp. Descending colon polyp. Diverticulosis Pre Op Diagnosis: History of colon polyps Post-Op Diagnosis: ascending colon mass, ascending colon polyp, descending colon polyp Anesthesia Technique: [facility] [place] Primary Surgeon: Pricila Gleason Condition: Good
--- NOTE | 2019-04-10 12:18 | PCM48HPAN ---
Post Anesthesia Note - EVALUATION WITHIN 48HRS OF ANESTHETIC Vital Signs in Normal Range: Yes Patient Participated in Evaluation: Yes Respiratory Function Stable: Yes Airway Patent: Yes Cardiovascular Function Stable: Yes Hydration Status Stable: Yes Pain Control Satisfactory: Yes Nausea and Vomiting Control Satisfactory: Yes Mental Status Recovered: Yes Resp Rate: 15
--- NOTE | 2019-04-11 15:55 | OR ---
SURGEON: ELEAZAR HYDE MD DATE OF PROCEDURE: 04/10/2019 PREOPERATIVE DIAGNOSIS: History of colon polyps. POSTOPERATIVE DIAGNOSES: 1. Ascending colon polyp. 2. Ascending colon mass. 3. Descending colon polyp. 4. Diverticulosis. PROCEDURE PERFORMED: Diagnostic colonoscopy. ANESTHESIA: MAC. INSTRUMENT USED: Olympus colonoscope. EXTENT OF EXAM: To the cecum. PREPARATION: Good. LIMITATIONS: None. INDICATION FOR EXAMINATION: The patient is a 48-year-old female who underwent a colonoscopy approximately 6 months ago. At that time, she was found to have multiple tubular adenomas throughout the colon and one large polyp in the cecum/ascending colon. She was sent to a colorectal surgeon who performed an endoscopic resection. It was recommended she undergo a 6-month followup to reexamined the area. The patient and I discussed the procedure, expected perioperative course, and risks including bleeding, infection, or damage to surrounding structures. The patient verbalized understanding and wishes to proceed. PROCEDURE IN DETAIL: The patient was brought to the endoscopy suite and placed in the left lateral decubitus position. A time-out was completed verifying the patient's name, age, date of , allergies, and procedure to be performed. Monitored anesthesia care was induced and continuous oxygen was provided via nasal cannula throughout the procedure. After adequate sedation was achieved, a digital rectal exam was performed. This exam was within normal limits. A well lubricated colonoscope was inserted in the rectum and advanced under direct visualization to the level of the cecum. The cecum was identified by visual landmarks. A photograph was taken of cecal cap as well as with the scope retroflexed within the cecum. The scope was then fully withdrawn while examining the color, texture, anatomy, and integrity of the mucosa from the cecum to the anal canal. The patient had a sessile ascending colon mass just distal to the cecal cap. This was too large to remove in piecemeal fashion. Biopsies were taken and sent to Pathology, labeled as ascending colon mass. Just distal to this area was a previous area of resection is indicated by an inked margin. This area appeared normal. Then, just beyond that there was a small sessile ascending colon polyp. This was removed in piecemeal fashion using a cold biopsy forceps. In the proximal descending colon, the patient had another similar appearing sessile polyp. This was removed in piecemeal fashion using a cold biopsy forceps. The patient was noted to have diverticulosis throughout the sigmoid colon. The scope was brought into the rectum and retroflexed to allow visualization of the anal canal opening. This appeared normal and a photograph was taken. The scope was then straightened out and fully withdrawn. The cecum to anus time was 25 minutes. The patient tolerated the procedure well and was taken to PACU in stable condition. ENDOSCOPIC DIAGNOSES: 1. Ascending colon polyp. 2. Ascending colon mass. 3. Descending colon polyp. 4. Diverticulosis. RECOMMENDATIONS: We will follow up on the pathology results, but the patient will likely need to go back to her colorectal surgeon to discuss the next steps and management of her ascending colon mass. MEGHAN SAMUELS /[id number]
== END 2019-04-10 12:28 | disposition home or self-care (01) ==
LOC: MW.SDS 08:32
PROVIDERS: ATTEND Surgery
DX: D12.2 Benign neoplasm of ascending colon (principal); D12.4 Benign neoplasm of descending colon; K57.30 Diverticulosis of large intestine without perforation or abscess without bleeding; E03.9 Hypothyroidism, unspecified; F17.210 Nicotine dependence, cigarettes, uncomplicated; D22.39 Melanocytic nevi of other parts of face; D22.4 Melanocytic nevi of scalp and neck; Z88.2 Allergy status to sulfonamides; Z88.4 Allergy status to anesthetic agent; Z86.010 Personal history of colon polyps; Z79.899 Other long term (current) drug therapy
CPT/HCPCS: 45380; J2001; J2704; J3010; 00811; 88305

== ENCOUNTER 2024-04-03 06:12 | Day surgery (SDC) | payer BC ==
[2024-04-03] MEDS: Lactated Ringers 1,000 ML IV SCH (06:44)
[2024-04-03] MEDS ORDERED: Water For Injection, Sterile 20 ML ONE (07:30)
[2024-04-03] MEDS ORDERED: dexmedeTOMIDine HCl 200 MCG/2 ML SDV ONE (07:30)
[2024-04-03] MEDS ORDERED: propofoL 50 ML ONE (07:35)
[2024-04-03] MEDS ORDERED: fentaNYL 100 MCG/2 ML SDV ONE (08:16)
== END 2024-04-03 09:10 | disposition home or self-care (01) ==
LOC: MW.SDS 06:12
PROVIDERS: ATTEND Surgery
DX: Z12.11 Encounter for screening for malignant neoplasm of colon (principal); D12.5 Benign neoplasm of sigmoid colon; D12.0 Benign neoplasm of cecum; D12.3 Benign neoplasm of transverse colon; K57.30 Diverticulosis of large intestine without perforation or abscess without bleeding; Z86.010 Personal history of colon polyps; K21.9 Gastro-esophageal reflux disease without esophagitis; E03.9 Hypothyroidism, unspecified; F17.200 Nicotine dependence, unspecified, uncomplicated; Z79.890 Hormone replacement therapy; Z79.899 Other long term (current) drug therapy; Z88.2 Allergy status to sulfonamides; Z88.8 Allergy status to other drugs, medicaments and biological substances
CPT/HCPCS: 45380; 45385; J2704; J3010; J7120; 00811; J3490

== ENCOUNTER 2024-06-26 19:06 | Emergency (ER) | payer BC ==
[2024-06-26] MEDS: hydrALAZINE 20 MG/ML SDV IVPUSH ONE (19:55)
[2024-06-26] MEDS: Metoclopramide 10 MG/2 ML SDV IVPUSH ONE (19:56)
[2024-06-26] MEDS: Ketorolac 30 MG/ML SDV IVPUSH ONE (19:56)
== END 2024-06-26 21:02 | disposition home or self-care (01) ==
LOC: MW.ED 19:06
DX: I10 Essential (primary) hypertension (principal); R51.9 Headache, unspecified; J45.909 Unspecified asthma, uncomplicated; E03.9 Hypothyroidism, unspecified; Z90.710 Acquired absence of both cervix and uterus; Z79.890 Hormone replacement therapy; Z79.899 Other long term (current) drug therapy; Z79.84 Long term (current) use of oral hypoglycemic drugs; Z88.8 Allergy status to other drugs, medicaments and biological substances; Z88.2 Allergy status to sulfonamides
CPT/HCPCS: 96374; 96375; 99283; J0360; J1885; J2765; 99284

== ENCOUNTER 2024-08-22 10:17 | Emergency (ER) | payer BC ==
[2024-08-22 11:05] LABS: BASOPHILS ABSOLUTE AUTO 0.03 K/uL (0.00-0.20); BASOPHILS PERCENT AUTO 0.2 % (0.0-1.0); EOSINOPHILS ABSOLUTE AUTO 0.12 K/uL (0.00-0.45); EOSINOPHILS PERCENT AUTO 0.8 % (0.0-6.0); HEMATOCRIT 38.5 % (37.0-47.0); HEMOGLOBIN 13.2 g/dL (12.0-16.0); IMMATURE GRAN ABSOLUTE AUTO 0.05 K/uL (0.00-0.05); IMMATURE GRAN PERCENT AUTO 0.3 % (0.0-0.4); LYMPHOCYTES ABSOLUTE AUTO 1.57 K/uL (1.00-4.80); LYMPHOCYTES PERCENT AUTO 10.6 % (24.0-44.0); MEAN CORPUSCULAR HEMOGLOBIN 29.5 pg (28.0-32.0); MEAN CORPUSCULAR HGB CONC 34.3 g/dL (32.0-36.0); MEAN CORPUSCULAR VOLUME 85.9 fL (83.0-99.0); MONOCYTES ABSOLUTE AUTO 0.91 K/uL (0.00-0.80); MONOCYTES PERCENT AUTO 6.2 % (0.0-8.0); NEUTROPHILS ABSOLUTE AUTO 12.11 K/uL (1.80-7.70); NEUTROPHILS PERCENT AUTO 81.9 % (41.0-71.0); PLATELET COUNT,PLT 253 K/uL (150-400); RED BLOOD CELL COUNT 4.48 M/uL (4.10-5.30); WHITE BLOOD CELL COUNT,WBC 14.79 K/uL (3.9-11.3)
[2024-08-22 11:29] LABS: ALBUMIN 3.6 g/dL (3.4-5.0); BILIRUBIN TOTAL 0.6 mg/dL (0.2-1.0); CARBON DIOXIDE,CO2 24.7 mmol/L (21.0-32.0); CREATININE 0.6 mg/dL (0.6-1.0); EST CRCL DRUG DOSING (CG) 97.57 mL/min; POTASSIUM,K 4.3 mmol/L (3.5-5.1); PROTEIN TOTAL,TP 7.1 g/dL (6.4-8.2)
[2024-08-22] MEDS: Iopamidol 755 MG/ML 500 ML Multipack Bottle IVPUSH STA (12:15)
== END 2024-08-22 12:51 | disposition home or self-care (01) ==
LOC: MW.ED 10:17
DX: K57.32 Diverticulitis of large intestine without perforation or abscess without bleeding (principal); I10 Essential (primary) hypertension; E11.9 Type 2 diabetes mellitus without complications; J45.909 Unspecified asthma, uncomplicated; E03.9 Hypothyroidism, unspecified; F17.200 Nicotine dependence, unspecified, uncomplicated; Z88.2 Allergy status to sulfonamides; Z88.8 Allergy status to other drugs, medicaments and biological substances; Z79.84 Long term (current) use of oral hypoglycemic drugs; Z79.890 Hormone replacement therapy; Z79.899 Other long term (current) drug therapy; Z90.710 Acquired absence of both cervix and uterus; Z75.8 Other problems related to medical facilities and other health care
CPT/HCPCS: 36415; 74177; 80053; 83690; 85025; 99284; Q9967

== ENCOUNTER 2024-11-15 17:48 | Emergency (ER) | payer BC, OTHER ==
[2024-11-15] MEDS ORDERED: Sodium Chloride 0.9% 10 ML Syringe FLUSH PRN (18:42)
[2024-11-15 19:27] LABS: BASOPHILS ABSOLUTE AUTO 0.04 K/uL (0.00-0.20); BASOPHILS PERCENT AUTO 0.5 % (0.0-1.0); EOSINOPHILS ABSOLUTE AUTO 0.11 K/uL (0.00-0.45); EOSINOPHILS PERCENT AUTO 1.2 % (0.0-6.0); HEMATOCRIT 41.7 % (37.0-47.0); IMMATURE GRAN ABSOLUTE AUTO 0.02 K/uL (0.00-0.05); IMMATURE GRAN PERCENT AUTO 0.2 % (0.0-0.4); LYMPHOCYTES ABSOLUTE AUTO 2.03 K/uL (1.00-4.80); LYMPHOCYTES PERCENT AUTO 22.9 % (24.0-44.0); MEAN CORPUSCULAR HEMOGLOBIN 30.2 pg (28.0-32.0); MEAN CORPUSCULAR HGB CONC 33.6 g/dL (32.0-36.0); MEAN CORPUSCULAR VOLUME 89.9 fL (83.0-99.0); MONOCYTES ABSOLUTE AUTO 0.43 K/uL (0.00-0.80); MONOCYTES PERCENT AUTO 4.8 % (0.0-8.0); NEUTROPHILS ABSOLUTE AUTO 6.24 K/uL (1.80-7.70); NEUTROPHILS PERCENT AUTO 70.4 % (41.0-71.0); PLATELET COUNT,PLT 274 K/uL (150-400); RED BLOOD CELL COUNT 4.64 M/uL (4.10-5.30); WHITE BLOOD CELL COUNT,WBC 8.87 K/uL (3.9-11.3)
[2024-11-15] MEDS: Iopamidol 755 MG/ML 500 ML Multipack Bottle IVPUSH ONE (19:35)
[2024-11-15 19:47] LABS: A/G RATIO 1.1 (0.9-1.6); ALANINE AMINOTRANSFERASE,ALT 26 IU/L (14-63); ALBUMIN 3.8 g/dL (3.4-5.0); ALKALINE PHOSPHATASE 64 U/L (46-116); ASPARTATE AMNIOTRANSFERASE,AST 13 IU/L (15-37); BILIRUBIN TOTAL 0.5 mg/dL (0.2-1.0); BLOOD UREA NITROGEN,BUN 11 mg/dL (7.0-18.0); CALCIUM 9.6 mg/dL (8.5-10.1); CARBON DIOXIDE,CO2 21.5 mmol/L (21.0-32.0); CHLORIDE,CL 97 mmol/L (98-107); CREATININE 0.7 mg/dL (0.6-1.0); EST CRCL DRUG DOSING (CG) 83.63 mL/min; GLUCOSE RANDOM 98 mg/dL (74-106); MAGNESIUM 1.9 mg/dL (1.8-2.4); POTASSIUM,K 4.3 mmol/L (3.5-5.1); PROTEIN TOTAL,TP 7.4 g/dL (6.4-8.2); SODIUM,NA 132 mmol/L (136-145)
[2024-11-15 19:50] LABS: ESTIMATED GFR 103 mL/min (>60)
[2024-11-15] MEDS: Aspirin 325 MG Tab.EC PO ONE (21:01)
== END 2024-11-15 21:45 ==
LOC: MW.ED 17:48
DX: I63.9 Cerebral infarction, unspecified (principal); I10 Essential (primary) hypertension; E03.9 Hypothyroidism, unspecified; Z88.2 Allergy status to sulfonamides; Z88.8 Allergy status to other drugs, medicaments and biological substances; Z79.84 Long term (current) use of oral hypoglycemic drugs; Z79.899 Other long term (current) drug therapy; Z90.710 Acquired absence of both cervix and uterus
CPT/HCPCS: 36415; 70450; 70496; 70498; 71045; 80053; 83735; 84484; 85025; 93005; 99285; A9270; Q9967; 93010

== ENCOUNTER 2025-02-25 21:34 | Emergency (ER) | payer OTHER ==
[2025-02-25 21:57] LABS: BASOPHILS ABSOLUTE AUTO 0.05 K/uL (0.00-0.20); BASOPHILS PERCENT AUTO 0.7 % (0.0-1.0); EOSINOPHILS ABSOLUTE AUTO 0.17 K/uL (0.00-0.45); EOSINOPHILS PERCENT AUTO 2.4 % (0.0-6.0); HEMATOCRIT 33.6 % (37.0-47.0); HEMOGLOBIN 11.3 g/dL (12.0-16.0); IMMATURE GRAN ABSOLUTE AUTO 0.02 K/uL (0.00-0.05); IMMATURE GRAN PERCENT AUTO 0.3 % (0.0-0.4); LYMPHOCYTES ABSOLUTE AUTO 2.33 K/uL (1.00-4.80); LYMPHOCYTES PERCENT AUTO 33.4 % (24.0-44.0); MEAN CORPUSCULAR HEMOGLOBIN 29.7 pg (28.0-32.0); MEAN CORPUSCULAR HGB CONC 33.6 g/dL (32.0-36.0); MEAN CORPUSCULAR VOLUME 88.2 fL (83.0-99.0); MEAN PLATELET VOLUME 9.4 fL (9.4-12.3); MONOCYTES ABSOLUTE AUTO 0.41 K/uL (0.00-0.80); MONOCYTES PERCENT AUTO 5.9 % (0.0-8.0); NEUTROPHILS ABSOLUTE AUTO 3.99 K/uL (1.80-7.70); NEUTROPHILS PERCENT AUTO 57.3 % (41.0-71.0); PLATELET COUNT,PLT 243 K/uL (150-400); RED BLOOD CELL COUNT 3.81 M/uL (4.10-5.30); WHITE BLOOD CELL COUNT,WBC 6.97 K/uL (3.9-11.3)
[2025-02-25] MEDS: Iopamidol 755 MG/ML 500 ML Multipack Bottle IVPUSH ONE (22:07)
[2025-02-25 22:20] LABS: A/G RATIO 1.2 (0.9-1.6); ALANINE AMINOTRANSFERASE,ALT 33 IU/L (14-63); ALBUMIN 3.9 g/dL (3.4-5.0); ALKALINE PHOSPHATASE 77 U/L (46-116); ASPARTATE AMNIOTRANSFERASE,AST 19 IU/L (15-37); BILIRUBIN TOTAL 0.4 mg/dL (0.2-1.0); BLOOD UREA NITROGEN,BUN 11 mg/dL (7.0-18.0); CALCIUM 8.7 mg/dL (8.5-10.1); CARBON DIOXIDE,CO2 25.7 mmol/L (21.0-32.0); CHLORIDE,CL 92 mmol/L (98-107); CREATININE 0.8 mg/dL (0.6-1.0); EST CRCL DRUG DOSING (CG) 73.18 mL/min; GLUCOSE RANDOM 91 mg/dL (74-106); MAGNESIUM 1.8 mg/dL (1.8-2.4); POTASSIUM,K 4.1 mmol/L (3.5-5.1); PROTEIN TOTAL,TP 7.1 g/dL (6.4-8.2); SODIUM,NA 125 mmol/L (136-145)
[2025-02-25] MEDS: Sodium Chloride 0.9% 1,000 ML IV SCH (22:20)
[2025-02-25 22:42] LABS: ESTIMATED GFR 88 mL/min (>60)
[2025-02-25 23:22] LABS: APPEARANCE,URINE CLEAR; BILIRUBIN,URINE NEGATIVE (NEGATIVE); COLOR,URINE YELLOW; GLUCOSE,URINE NEGATIVE (NEGATIVE); KETONES,URINE NEGATIVE (NEGATIVE); LEUKOCYTE ESTERASE,URINE NEGATIVE (NEGATIVE); NITRITE,URINE NEGATIVE (NEGATIVE); OCCULT BLOOD,URINE NEGATIVE (NEGATIVE); PROTEIN,URINE NEGATIVE (NEGATIVE); UROBILINOGEN,URINE 0.2 EU/dL (<2.0)
== END 2025-02-26 00:05 ==
LOC: MW.ED 21:34
DX: R42 Dizziness and giddiness (principal); R47.81 Slurred speech; R47.01 Aphasia; I10 Essential (primary) hypertension; J45.909 Unspecified asthma, uncomplicated; K21.9 Gastro-esophageal reflux disease without esophagitis; E03.9 Hypothyroidism, unspecified; Z79.899 Other long term (current) drug therapy; Z79.84 Long term (current) use of oral hypoglycemic drugs; Z79.82 Long term (current) use of aspirin; Z79.890 Hormone replacement therapy; Z88.8 Allergy status to other drugs, medicaments and biological substances; Z88.2 Allergy status to sulfonamides
CPT/HCPCS: 36415; 70450; 70496; 70498; 71045; 80053; 81003; 82947; 83735; 84484; 85025; 93005; 96360; 99285; J7030; Q9967; 93010; 99284